=== PATIENT | female | born 1990 | race American Indian/Alaskan Native ===

== ENCOUNTER 2024-02-28 11:47 | Emergency (ER) | payer MEDICAID, OTHER ==
[~2024-02-28] VITALS: Ht 177.8 cm; Wt 65.7 kg
[2024-02-28 15:10] VITALS: BP 100/60; PULSE 76; RESP 12; TEMP 98.6; O2SAT 99
[2024-03-01 01:06] LABS: Chlamydia Trachomatis, NAA Negative (Negative); Neisseria gonorrhoeae, NAA Negative (Negative)
== END 2024-02-28 16:46 | disposition home or self-care (01) ==
LOC: ER 11:47
DX: Z11.3 Encounter for screening for infections with a predominantly sexual mode of transmission (principal); R11.2 Nausea with vomiting, unspecified
CPT/HCPCS: 81025; 86592; 86703